=== PATIENT | female | born 1975 | race Caucasian/White ===

== ENCOUNTER → 2017-05-07 | Outpatient (CLI) | payer BC ==
[~2017-05-07] MED LIST: ISOVUE-370 76% 100ML VIAL (Q9967) As Ordered ONE
--- NOTE | 2017-05-07 17:56 | REP ---
CT CHEST WITH CONTRAST: 05/07/2017. Clinical history: Localized swelling, mass and lump. Question lung herniation. Comparison: No prior study. Technique: The patient received Isovue 370, 75 mL scanning through the chest with coronal and sagittal reconstructions. The patient stated the area in question is just inferior to the right breast and not involving the breast at all. It is in the anterior chest wall region. A marker was not used. Findings: The lung roche are well inflated and show no pleural effusion, pleural thickening, calcified pleural plaque, parenchymal mass, pleural based mass or calcified pulmonary nodule. There is a 3 mm nodule anteriorly and inferiorly in the right middle lobe subpleural region image 77 as a benign finding. I see no other significant lung finding or nodule. There is no pneumothorax or pneumomediastinum. [employer] film and coronal reconstruction show a dextrorotatory scoliosis of the mid thoracic region. The heart is not enlarged. There is no pericardial thickening or effusion. The aorta is without aneurysm or dissection. The main, right and left pulmonary arteries are without filling defects. No pathologic sized mediastinal or hilar adenopathy and no axillary, supraclavicular mass. I see no chest wall masses in the anterior posterior chest wall. There is very slight asymmetry in the anterior chest wall musculature overlying the costochondral junction on the right compared to left but this may be all due to the slight scoliosis and effect on chest wall shape. Bone window review of all of the ribs show no fracture or focal lesion. No cartilage lesion or mass. No fracture or healing fracture. There is no axillary, supraclavicular lesion. Bone windows of the thoracic spine show a few marginal osteophytes and Schmorl's nodes in the thoracic spine. No acute compression deformity. The sternum, manubrium, clavicles, AC joints, visualized portions of humeral heads and scapulae are intact. No focal rib lesion. There is certainly no lung herniation. The upper abdomen shows that portion of liver included to be unremarkable. Spleen is intact. Upper poles of kidneys were intact. N hiatal hernia. Adrenal glands normal. Stool and gas throughout the visualized portion of colon and that portion of pancreas included was also unremarkable. Impression: 1. 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 No destructive lesions. This may be causing very slight asymmetry of the muscle thickness over the costal margins in the medial inferior right chest. There is no mass, fracture or healing fracture of a rib, destructive lesion or rib cartilage or other significant finding. No subcutaneous soft tissue mass which is lipoma or intra costal muscle mass. 2. A 3 mm noncalcified nodule in the right middle lobe at the anterior lung base, a benign finding. There are no other findings. Signed by Stanton Shah MD 05/07/2017 08:02 P
== END ==
LOC: M RAD 16:11
PROVIDERS: ATTEND Thoracic Surgery (Cardiothoracic Vascular Surgery)
DX: R22.2 Localized swelling, mass and lump, trunk (principal); R91.1 Solitary pulmonary nodule; M54.6 Pain in thoracic spine
CPT/HCPCS: 71260; Q9967